=== PATIENT | male | born 1970 | race Caucasian/White ===

== ENCOUNTER 2018-04-30 10:56 | Emergency (ER) | payer BC, OTHER ==
[2018-04-30 11:58] VITALS: BP 141/78
--- NOTE | 2018-04-30 12:50 | RAD ---
INDICATION: Left lower leg for body. TECHNIQUE: 2 views of the left lower leg were obtained. FINDINGS: The bones are normal alignment. No fracture is seen. There is a focal area of soft tissue swelling anterior to the mid to distal diaphysis of the tibia. There is a metallic 3 mm density which projects in that region most consistent with a small foreign body. IMPRESSION: SMALL METALLIC FOREIGN BODY DESCRIBED.
--- NOTE | 2018-04-30 13:09 | UC ---
Luiz Leong Jade, scribed for Rober Muhammad MD on 04/30/18 at 1218 . Lower Extremity/Ankle HPI - HPI Summary HPI Summary: Patient is a 48 y/o male who presents to [facility] [place]/o LLE pain. He states he has had a metal FB in his left lower middle leg for 7 years that has never been removed. 10 days ago, he started to have pain in this same area rated a 6/10 in severity. Patient also coincidentally c/o a sore throat, but denies any fever or chills. - History of Current Complaint Chief Complaint: UCRespiratory Stated Complaint: RED AREA ON LEG Time Seen by Provider: 04/30/18 12:01 Hx Obtained From: Patient Onset/Duration: Gradual Onset, Lasting Days - 10, Still Present Severity Currently: Moderate Pain Intensity: 5 Pain Scale Used: 0-10 Numeric Aggravating Factor(s): Nothing Alleviating Factor(s): Nothing Related History: Other - Metal FB in leg - Allergies/Home Medications Allergies/Adverse Reactions: Allergies Allergy/AdvReac Type Severity Reaction Status Date / Time Adhesive Tape Allergy Rash Verified 04/30/18 11:58 Home Medications: Home Medications Gabapentin CAP(*) [Neurontin 300 CAP(*)] 900 mg PO BEDTIME 04/30/18 [History Confirmed 04/30/18] Omeprazole CAP* [Prilosec CAP* 20 MG] 40 mg PO DAILY 04/30/18 [History Confirmed 04/30/18] PMH/Surg Hx/FS Hx/Imm Hx Endocrine History: Other Other Endocrine History: NEGATIVE: diabetes Cardiovascular History: Other Other Cardiovascular History: NEGATIVE: HTN - Surgical History Surgical History: Yes Surgery Procedure, Year, and Place: L shoulder, appendectomy, fusion bones wrist L, L knee arthroscopy - Family History Known Family History: Negative: Hypertension, Diabetes - Social History Alcohol Use: Weekly Substance Use Type: None Smoking Status (MU): Light Every Day Tobacco Smoker Type: Cigars Amount Used/How Often: 1 sigar/day Review of Systems Constitutional: Negative - Fever, chills ENT: Sore Throat Musculoskeletal: Other: - LLE pain and metal FB All Other Systems Reviewed And Are Negative: Yes Physical Exam - Summary Physical Exam Summary: VITAL SIGNS: Reviewed. GENERAL: Patient is a well-developed and nourished MALE who is lying comfortable in the stretcher. Patient is not in any acute respiratory distress. HEAD AND FACE: Normocephalic EYES: PERRLA, EOMI x 2. EARS: Hearing grossly intact. MOUTH: Pharyngeal erythema, no exudate. NECK: Supple, trachea is midline, no adenopathy, no JVD, no carotid bruit. CHEST: Symmetric, no tenderness at palpation LUNGS: Clear to auscultation bilaterally. No wheezing or crackles. CVS: Regular rate and rhythm, S1 and S2 present, no murmurs or gallops appreciated. ABDOMEN: Soft, non-tender. Bowel sounds are normal. No abdominal abnormal pulsations. EXTREMITIES: Full ROM in all major joints, no edema, no cyanosis or clubbing. NEURO: Alert and oriented x 3. No acute neurological deficits. Speech is normal and follows commands. SKIN: Dry and warm. 3 x 3 cm area with some erythema on left middle lower leg with a central small bump. Triage Information Reviewed: Yes Vital Signs: Initial Vital Signs Temp 98.4 F 04/30/18 11:48 Pulse 88 04/30/18 11:48 Resp 16 04/30/18 11:48 BP 143/87 04/30/18 11:48 Pulse Ox 98 04/30/18 11:48 Vital Signs Reviewed: Yes Diagnostics - Radiology Lower Extremity XR Xray Interpretation: Positive (See Comments) - 12:14 SMALL METALLIC FOREIGN BODY DESCRIBED. physician reviewed radiology report. Radiology Interpretation Completed By: Radiologist Lower Extremity Course/Dx - Course Course Of Treatment: Rapid strep is negative. Likely the patient has a viral Pharyngitis. X-ray of the left lower extremity shows a foreign body described the x-ray report. Symptoms the patient has a slight cellulitis therefore the patient was given Keflex. Patient will follow-up with primary care physician and if symptoms worsen he will return to the urgent care over to the ED for further assessment and workup. - Differential Dx/Diagnosis Provider Diagnoses: Cellulitis. Rhinopharyngitis. Left lower extremity FB. Discharge - Sign-Out/Discharge Documenting (check all that apply): Discharge/Admit/Transfer - Discharge Plan Condition: Stable Disposition: HOME Prescriptions: Cephalexin CAP* [Keflex CAP*] 500 mg PO TID #30 cap Patient Education Materials: Cellulitis (ED), Pharyngitis (ED) Referrals: [facility] [place] [facility] REFERRAL [Outside] No Primary Care Phys,NOPCP [Primary Care Provider] - Additional Instructions: FOLLOW UP WITH YOUR PRIMARY CARE PROVIDER WITHIN ONE WEEK FOR HIGH BLOOD PRESSURE NOTED TODAY. RETURN TO URGENT CARE FOR ANY WORSENING OR NEW SYMPTOMS. - Billing Disposition and Condition Condition: STABLE Disposition: Home The documentation as recorded by the Luiz cardenas Jade accurately reflects the service I personally performed and the decisions made by me, Rober Muhammad MD.
== END 2018-04-30 12:44 | disposition home or self-care (01) ==
LOC: UCEAST 10:56
DX: L03.116 Cellulitis of left lower limb (principal); M79.5 Residual foreign body in soft tissue; F17.210 Nicotine dependence, cigarettes, uncomplicated; Z91.09 Other allergy status, other than to drugs and biological substances
CPT/HCPCS: 87651; 99202; G0463